=== PATIENT | female | born 1950 | race Caucasian/White ===

== ENCOUNTER 2021-08-18 20:54 | Observation (INO) ==
[2021-08-18] MEDS ORDERED: SODIUM CHLORIDE 0.9% 500 ML IV SCH (21:00)
--- NOTE | 2021-08-18 21:09 | Emergency Department Note ---
Impression & Plan Seizure, Epileptic seizure ED Provider Note NAME: JAYCE RUIZ AGE: 71 SEX: F : 1950 ARRIVES VIA: Ambulance INFORMANT: Patient, EMS ED PROVIDER(S): Kirti Boyce DO CHIEF COMPLAINT: Seizure HPI: The patient is a 71-year-old female who presented to the emergency department by ambulance for an evaluation of seizure. The patient had a seizure at home. The history is limited secondary to the patient having altered mental status. According to the prehospital personnel and they arrived at the home the patient was combative and appeared to be postictal. It was reported that she had a seizure. The patient received 2 doses of Versed because she was postictal. There is no reported seizure witnessed by the EMS personnel. The patient does take Tegretol. There reportedly is a history of seizure. There is been no reported trauma. The patient has been compliant with her outpatient medications according to her history. There is been no reported fever. There is been no reported vomiting. The patient reportedly was at her normal mental status prior to this episode this evening. ROS: See above HPI for pertinent positives & negatives. A total of 10 systems reviewed and were otherwise negative. PAST MEDICAL HISTORY: See Below PAST SURGICAL HISTORY: See Below FAMILY HISTORY: See Below SOCIAL HISTORY: See Below HOME MEDICATIONS: See Below ALLERGIES: See Below VITALS: See Below PHYSICAL EXAMINATION: GENERAL: The patient is awake. She is somewhat listless. She follows commands slowly. EYES: The conjunctivae are clear. The pupils are dilated and reactive bilaterally. EARS, NOSE, MOUTH AND THROAT: The nose is without any evidence of any deformity. NECK: The neck is nontender and supple. RESPIRATORY: Normal respiratory effort is noted there is no evidence of wheezing rhonchi or rales CARDIOVASCULAR: Regular rate and rhythm noted there no murmurs rubs or gallops normal S1 normal S2. GASTROINTESTINAL: The abdomen is soft. Abdomen is nontender. MUSCULOSKELETAL/EXTREMITIES: There is no evidence of gross deformity full range of motion is noted in the hips and shoulders. SKIN: There is no obvious evidence of any rash. There are no petechiae, pallor or cyanosis noted. NEUROLOGIC: Patient is awake. She appears to be oriented to person but not place or time. Strength was symmetric. 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 MEDICAL DECISION MAKING: The patient is a 71-year-old female who presented to the emergency department for an evaluation after having a seizure. The patient has a history of seizure disorder and normally takes Tegretol. She states that she has been compliant with her outpatient medications. On route to the emergency department the patient was somewhat combative and complaining of headache. She was treated with Versed by the prehospital personnel. Upon arrival she still appeared to be postictal. I discussed the patient's laboratory and radiographic studies with her. On subsequent reevaluation she was awake alert and oriented x3. She was neurologically intact. According to her significant other she was at her neurologic baseline. While she was in the emergency department she was treated with IV Keppra after she had another episode of seizure. She does have mild hyponatremia. I do not feel that this is contributory to the seizure. I discussed her condition with the on-call [facility] hospitalist. They have agreed to evaluate the patient in the emergency department for further man agement and disposition. Triage Nursing notes reviewed. Prior medical records reviewed Vital Signs: reviewed and remarkable for elevated blood pressure. Differential diagnosis: Epilepsy, infection, hypoglycemia, electrolyte abnormalities, cardiac sources, intracerebral event, trauma, toxicologic, neurologic, syncope, as well as other pathologies. ER treatment provided: See below Diagnostics interpreted by me: ECG: EKG was obtained in the emergency department. My interpretation is normal sinus rhythm at [address] segment depressions were noted in the inferior and low lateral leads. There is no ectopy. No previous tracing was available. Cardiac Monitoring: An order was placed for continuous cardiac monitoring. The monitor shows a rate of 72 bpm with sinus rhythm. Laboratory studies: As stated above and show below. Imaging studies: See below Consultation(s): I discussed this case with Dr. Caicedo Past Med/Surg History Social History Smoking Status: Unknown if ever smoked Preferred Language: Jamaican Feels Safe at Home: Yes Allergies Allergies Allergy/AdvReac Type Severity Reaction Status Date / Time No Known Allergies Allergy Verified 08/18/21 21:32 Home Meds Home Medications Medication Instructions Recorded Confirmed carbamazepine 400 mg 400 mg PO BID 08/18/21 08/18/21 tablet,extended release,12 hr (Tegretol XR) furosemide 20 mg tablet 20 mg PO DAILY 08/18/21 08/18/21 meloxicam 7.5 mg tablet 7.5 mg PO DAILY 08/18/21 08/18/21 metoprolol succinate 25 mg 25 mg PO DAILY 08/18/21 08/18/21 tablet,extended release 24 hr multivitamin 1 tab PO DAILY 08/18/21 08/18/21 omeprazole 20 mg capsule,delayed 20 mg PO DAILY 08/18/21 08/18/21 release paroxetine HCl 20 mg tablet 20 mg PO DAILY 08/18/21 08/18/21 paroxetine HCl 40 mg tablet 40 mg PO DAILY 08/18/21 08/18/21 simvastatin 20 mg tablet 20 mg PO DAILY 08/18/21 08/18/21 vit C 250 mg-vit E 90 mg-zinc 40 1 tab PO BID 08/18/21 08/18/21 mg-copper 1 [id number] capsule (PreserVision AREDS-2) Results & Data (ED) Vital Signs Vital Signs - 24 hr 08/18/21 21:06 08/18/21 21:07 08/18/21 21:10 Temperature 36.9 C Temperature Source Temporal Artery Scan Pulse Rate 89 80 84 Pulse Rate [Right Finger] Pulse Rate from SpO2 Sensor 89 86 Pulse Rhythm Respiratory Rate 22 21 20 Respiratory Effort / Characteristics Non-Labored Spontaneous Respiratory Depth Normal Blood Pressure 163/86 H Blood Pressure [Right Arm] Blood Pressure Mean 111 Blood Pressure Mean [Right Arm] Pulse Oximetry 94 99 95 Oxygen Delivery Method Room Air Sepsis Recent Fever Within 48 Hours No Sepsis New/Unexplained Change in Mental Status N/A Sepsis Action Taken by Nursing No Action Required 08/18/21 21:28 08/18/21 21:30 08/18/21 21:32 Temperature Temperature Source Pulse Rate 82 81 Pulse Rate [Right Finger] 85 Pulse Rate from SpO2 Sensor 81 80 Pulse Rhythm Respiratory Rate 30 H 20 22 Respiratory Effort / Characteristics Non-Labored Spontaneous Respiratory Depth Normal Blood Pressure 156/73 H Blood Pressure [Right Arm] 156/73 H Blood Pressure Mean 100 Blood Pressure Mean [Right Arm] 100 Pulse Oximetry 97 96 96 Oxygen Delivery Method Room Air Sepsis Recent Fever Within 48 Hours Sepsis New/Unexplained Change in Mental Status Sepsis Action Taken by Nursing 08/18/21 21:40 08/18/21 21:45 08/18/21 21:50 Temperature Temperature Source Pulse Rate 76 76 72 Pulse Rate [Right Finger] Pulse Rate from SpO2 Sensor 76 77 73 Pulse Rhythm Respiratory Rate 21 22 18 Respiratory Effort / Characteristics Respiratory Depth Blood Pressure 155/74 H 152/72 H Blood Pressure [Right Arm] Blood Pressure Mean 101 98 Blood Pressure Mean [Right Arm] Pulse Oximetry 97 97 97 Oxygen Delivery Method Sepsis Recent Fever Within 48 Hours Sepsis New/Unexplained Change in Mental Status Sepsis Action Taken by Nursing 08/18/21 21:55 08/18/21 21:59 08/18/21 22:00 Temperature Temperature Source Pulse Rate 75 74 Pulse Rate [Right Finger] 70 Pulse Rate from SpO2 Sensor 74 Pulse Rhythm Regular Respiratory Rate 16 27 H Respiratory Effort / Characteristics Respiratory Depth Blood Pressure 143/68 H Blood Pressure [Right Arm] 152/72 H Blood Pressure Mean 93 Blood Pressure Mean [Right Arm] 98 Pulse Oximetry 97 95 94 Oxygen Delivery Method Room Air Room Air Sepsis Recent Fever Within 48 Hours Sepsis New/Unexplained Change in Mental Status Sepsis Action Taken by Nursing 08/18/21 22:02 08/18/21 22:10 08/18/21 22:15 Temperature Temperature Source Pulse Rate 73 70 Pulse Rate [Right Finger] 75 Pulse Rate from SpO2 Sensor 71 71 Pulse Rhythm Respiratory Rate 16 21 22 Respiratory Effort / Characteristics Respiratory Depth Blood Pressure 141/80 H Blood Pressure [Right Arm] 143/68 H Blood Pressure Mean 100 Blood Pressure Mean [Right Arm] 93 Pulse Oximetry 95 97 96 Oxygen Delivery Method Room Air Sepsis Recent Fever Within 48 Hours Sepsis New/Unexplained Change in Mental Status Sepsis Action Taken by Nursing 08/18/21 22:20 08/18/21 22:58 08/18/21 23:00 Temperature Temperature Source Pulse Rate 72 69 67 Pulse Rate [Right Finger] Pulse Rate from SpO2 Sensor 73 70 68 Pulse Rhythm Respiratory Rate 12 20 17 Respiratory Effort / Characteristics Respiratory Depth Blood Pressure 130/79 Blood Pressure [Right Arm] Blood Pressure Mean 96 Blood Pressure Mean [Right Arm] Pulse Oximetry 98 97 96 Oxygen Delivery Method Sepsis Recent Fever Within 48 Hours Sepsis New/Unexplained Change in Mental Status Sepsis Action Taken by Nursing 08/18/21 23:10 08/18/21 23:20 08/18/21 23:30 Temperature Temperature Source Pulse Rate 71 66 65 Pulse Rate [Right Finger] Pulse Rate from SpO2 Sensor 71 66 65 Pulse Rhythm Respiratory Rate 19 22 26 H Respiratory Effort / Characteristics Respiratory Depth Blood Pressure 115/80 Blood Pressure [Right Arm] Blood Pressure Mean 91 Blood Pressure Mean [Right Arm] Pulse Oximetry 96 96 98 Oxygen Delivery Method Sepsis Recent Fever Within 48 Hours Sepsis New/Unexplained Change in Mental Status Sepsis Action Taken by Nursing 08/18/21 23:40 08/18/21 23:51 08/19/21 00:00 Temperature Temperature Source Pulse Rate 68 71 Pulse Rate [Right Finger] Pulse Rate from SpO2 Sensor 68 74 71 Pulse Rhythm Respiratory Rate 18 21 Respiratory Effort / Characteristics Non-Labored Respiratory Depth Normal Blood Pressure Blood Pressure [Right Arm] Blood Pressure Mean Blood Pressure Mean [Right Arm] Pulse Oximetry 97 98 96 Oxygen Delivery Method Sepsis Recent Fever Within 48 Hours Sepsis New/Unexplained Change in Mental Status Sepsis Action Taken by Nursing 08/19/21 00:10 08/19/21 00:20 08/19/21 00:26 Temperature Temperature Source Pulse Rate 66 70 73 Pulse Rate [Right Finger] Pulse Rate from SpO2 Sensor 65 70 74 Pulse Rhythm Respiratory Rate 23 23 21 Respiratory Effort / Characteristics Respiratory Depth Blood Pressure 134/72 Blood Pressure [Right Arm] Blood Pressure Mean 92 Blood Pressure Mean [Right Arm] Pulse Oximetry 91 93 96 Oxygen Delivery Method Sepsis Recent Fever Within 48 Hours Sepsis New/Unexplained Change in Mental Status Sepsis Action Taken by Nursing 08/19/21 00:30 08/19/21 00:40 08/19/21 00:50 Temperature Temperature Source Pulse Rate 70 74 69 Pulse Rate [Right Finger] Pulse Rate from SpO2 Sensor 70 74 69 Pulse Rhythm Respiratory Rate 17 25 H 24 Respiratory Effort / Characteristics Respiratory Depth Blood Pressure 134/71 Blood Pressure [Right Arm] Blood Pressure Mean 92 Blood Pressure Mean [Right Arm] Pulse Oximetry 97 93 95 Oxygen Delivery Method Sepsis Recent Fever Within 48 Hours Sepsis New/Unexplained Change in Mental Status Sepsis Action Taken by Nursing 08/19/21 01:00 Temperature Temperature Source Pulse Rate 72 Pulse Rate [Right Finger] Pulse Rate from SpO2 Sensor 72 Pulse Rhythm Respiratory Rate 24 Respiratory Effort / Characteristics Respiratory Depth Blood Pressure 147/70 H Blood Pressure [Right Arm] Blood Pressure Mean 95 Blood Pressure Mean [Right Arm] Pulse Oximetry 95 Oxygen Delivery Method Sepsis Recent Fever Within 48 Hours Sepsis New/Unexplained Change in Mental Status Sepsis Action Taken by [facility] Medications Current Medication List: was personally reviewed by me Laboratory Data Attestation: I reviewed the patient's lab results. Result diagrams: 08/18/21 21:30 08/18/21 21:30 Lab Results 08/18/21 08/18/21 08/18/21 Range/Units 21:05 21:18 21:18 WBC (4.8-10.8) K/uL RBC (4.2-5.4) M/uL Hgb (12.0-16.0) g/dL Hct (37-47) % MCV (80-100) fL MCH (25-34) pg MCHC (32-36) g/dL RDW Std Deviation (36.4-46.3) fL RDW Coeff of Brunilda (11.5-14.5) % Plt Count (130-400) K/uL MPV (7.4-10.4) fL Immature Gran % (Auto) % Neut % (Auto) % Lymph % (Auto) % [place] % (Auto) % Eos % (Auto) % Baso % (Auto) % Neut # (Auto) (1.4-6.5) K/uL Lymph # (Auto) (1.2-3.4) K/uL [place] # (Auto) (0.11-0.59) K/uL Eos # (Auto) (0-0.5) K/uL Baso # (Auto) (0-0.2) K/uL Immature Gran # (Auto) (0.00-0.02) K/uL PT (9.0-12.0) Seconds INR (0.9-1.1) APTT (21.0-31.0) Seconds PTT Ratio Sodium (136-145) mmol/L Potassium (3.5-5.1) mmol/L Chloride (98-107) mmol/L Carbon Dioxide (21-32) mmol/L Anion Gap (3-11) BUN (6-23) mg/dl Creatinine (0.6-1.2) mg/dl Est Cr Clr Drug Dosing ml/min Est GFR ( Amer) ml/min Est GFR (Non-Af Amer) ml/min BUN/Creatinine Ratio (10-20) Glucose (70-99(Fasting)) mg/dl POC Glucose 111 H (70-99) mg/dl Osmolality 270 L (280-300) mOsm/kg Calcium (8.5-10.1) mg/dl Magnesium (1.7-2.4) mg/dl Total Bilirubin (0.2-1.0) mg/dl AST (13-39) U/L ALT (7-52) U/L Alkaline Phosphatase (34-104) U/L Total Creatine Kinase (26-192) U/L Troponin I High Sens (0-14) pg/ml Total Protein (6.0-8.3) gm/dl Albumin (3.4-5.0) gm/dl Globulin (2.5-4.0) gm/dl Albumin/Globulin Ratio (0.9-2) TSH (0.300-4.500) uIu/ml Urine Color Urine Appearance (Clear) Urine pH (4.5-7.5) Ur Specific [place] (1.000-1.030) Urine Protein (Negative) Urine Glucose (UA) (Negative) Urine Ketones (Negative) Urine Blood (Negative) Urine Nitrite (Negative) Urine Bilirubin (Negative) Urine Urobilinogen (Negative) Ur Leukocyte Esterase (Negative) Urine Osmolality (500-800) mOsm/kg Ur Random Sodium mmol/L Carbamazepine 9.8 (4-12) mcg/ml SARS-CoV-2, RNA, NAAT (NEGATIVE) 08/18/21 08/18/21 08/18/21 Range/Units 21:30 21:30 21:30 WBC 6.97 (4.8-10.8) K/uL RBC 4.14 L (4.2-5.4) M/uL Hgb 12.1 (12.0-16.0) g/dL Hct 34.9 L (37-47) % MCV 84.3 (80-100) fL MCH 29.2 (25-34) pg MCHC 34.7 (32-36) g/dL RDW Std Deviation 40.8 (36.4-46.3) fL RDW Coeff of Brunilda 13.3 (11.5-14.5) % Plt Count 258 (130-400) K/uL MPV 8.7 (7.4-10.4) fL Immature Gran % (Auto) 0.1 % Neut % (Auto) 79.5 % Lymph % (Auto) 9.8 % [place] % (Auto) 9.9 % Eos % (Auto) 0.6 % Baso % (Auto) 0.1 % Neut # (Auto) 5.54 (1.4-6.5) K/uL Lymph # (Auto) 0.68 L (1.2-3.4) K/uL [place] # (Auto) 0.69 H (0.11-0.59) K/uL Eos # (Auto) 0.04 (0-0.5) K/uL Baso # (Auto) 0.01 (0-0.2) K/uL Immature Gran # (Auto) 0.01 (0.00-0.02) K/uL PT 11.0 (9.0-12.0) Seconds INR 1.0 (0.9-1.1) APTT 24.8 (21.0-31.0) Seconds PTT Ratio 0.9 Sodium 128 L (136-145) mmol/L Potassium 3.8 (3.5-5.1) mmol/L Chloride 97 L (98-107) mmol/L Carbon Dioxide 23 (21-32) mmol/L Anion Gap 8 (3-11) BUN 8 (6-23) mg/dl Creatinine 0.59 L (0.6-1.2) mg/dl Est Cr Clr Drug Dosing 93.8 ml/min Est GFR ( Amer) 107.6 ml/min Est GFR (Non-Af Amer) 92.9 ml/min BUN/Creatinine Ratio 13.6 (10-20) Glucose 106 H (70-99(Fasting)) mg/dl POC Glucose (70-99) mg/dl Osmolality (280-300) mOsm/kg Calcium 8.4 L (8.5-10.1) mg/dl Magnesium 2.1 (1.7-2.4) mg/dl Total Bilirubin 0.3 (0.2-1.0) mg/dl AST 27 (13-39) U/L ALT 25 (7-52) U/L Alkaline Phosphatase 57 (34-104) U/L Total Creatine Kinase 50 (26-192) U/L Troponin I High Sens 19.0 H (0-14) pg/ml Total Protein 6.8 (6.0-8.3) gm/dl Albumin 4.0 (3.4-5.0) gm/dl Globulin 2.8 (2.5-4.0) gm/dl Albumin/Globulin Ratio 1.4 (0.9-2) TSH (0.300-4.500) uIu/ml Urine Color Urine Appearance (Clear) Urine pH (4.5-7.5) Ur Specific [place] (1.000-1.030) Urine Protein (Negative) Urine Glucose (UA) (Negative) Urine Ketones (Negative) Urine Blood (Negative) Urine Nitrite (Negative) Urine Bilirubin (Negative) Urine Urobilinogen (Negative) Ur Leukocyte Esterase (Negative) Urine Osmolality (500-800) mOsm/kg Ur Random Sodium mmol/L Carbamazepine (4-12) mcg/ml SARS-CoV-2, RNA, NAAT (NEGATIVE) 08/18/21 08/18/21 08/18/21 Range/Units 21:30 21:32 23:40 WBC (4.8-10.8) K/uL RBC (4.2-5.4) M/uL Hgb (12.0-16.0) g/dL Hct (37-47) % MCV (80-100) fL MCH (25-34) pg MCHC (32-36) g/dL RDW Std Deviation (36.4-46.3) fL RDW Coeff of Brunilda (11.5-14.5) % Plt Count (130-400) K/uL MPV (7.4-10.4) fL Immature Gran % (Auto) % Neut % (Auto) % Lymph % (Auto) % [place] % (Auto) % Eos % (Auto) % Baso % (Auto) % Neut # (Auto) (1.4-6.5) K/uL Lymph # (Auto) (1.2-3.4) K/uL [place] # (Auto) (0.11-0.59) K/uL Eos # (Auto) (0-0.5) K/uL Baso # (Auto) (0-0.2) K/uL Immature Gran # (Auto) (0.00-0.02) K/uL PT (9.0-12.0) Seconds INR (0.9-1.1) APTT (21.0-31.0) Seconds PTT Ratio Sodium (136-145) mmol/L Potassium (3.5-5.1) mmol/L Chloride (98-107) mmol/L Carbon Dioxide (21-32) mmol/L Anion Gap (3-11) BUN (6-23) mg/dl Creatinine (0.6-1.2) mg/dl Est Cr Clr Drug Dosing ml/min Est GFR ( Amer) ml/min Est GFR (Non-Af Amer) ml/min BUN/Creatinine Ratio (10-20) Glucose (70-99(Fasting)) mg/dl POC Glucose (70-99) mg/dl Osmolality (280-300) mOsm/kg Calcium (8.5-10.1) mg/dl Magnesium (1.7-2.4) mg/dl Total Bilirubin (0.2-1.0) mg/dl AST (13-39) U/L ALT (7-52) U/L Alkaline Phosphatase (34-104) U/L Total Creatine Kinase (26-192) U/L Troponin I High Sens (0-14) pg/ml Total Protein (6.0-8.3) gm/dl Albumin (3.4-5.0) gm/dl Globulin (2.5-4.0) gm/dl Albumin/Globulin Ratio (0.9-2) TSH 1.884 (0.300-4.500) uIu/ml Urine Color Yellow Urine Appearance Clear (Clear) Urine pH 6.5 (4.5-7.5) Ur Specific [place] 1.012 (1.000-1.030) Urine Protein Negative (Negative) Urine Glucose (UA) Negative (Negative) Urine Ketones Negative (Negative) Urine Blood Negative (Negative) Urine Nitrite Negative (Negative) Urine Bilirubin Negative (Negative) Urine Urobilinogen Negative (Negative) Ur Leukocyte Esterase Negative (Negative) Urine Osmolality (500-800) mOsm/kg Ur Random Sodium mmol/L Carbamazepine (4-12) mcg/ml SARS-CoV-2, RNA, NAAT NEGATIVE (NEGATIVE) 08/18/21 08/18/21 08/19/21 Range/Units 23:40 23:40 00:30 WBC (4.8-10.8) K/uL RBC (4.2-5.4) M/uL Hgb (12.0-16.0) g/dL Hct (37-47) % MCV (80-100) fL MCH (25-34) pg MCHC (32-36) g/dL RDW Std Deviation (36.4-46.3) fL RDW Coeff of Brunilda (11.5-14.5) % Plt Count (130-400) K/uL MPV (7.4-10.4) fL Immature Gran % (Auto) % Neut % (Auto) % Lymph % (Auto) % [place] % (Auto) % Eos % (Auto) % Baso % (Auto) % Neut # (Auto) (1.4-6.5) K/uL Lymph # (Auto) (1.2-3.4) K/uL [place] # (Auto) (0.11-0.59) K/uL Eos # (Auto) (0-0.5) K/uL Baso # (Auto) (0-0.2) K/uL Immature Gran # (Auto) (0.00-0.02) K/uL PT (9.0-12.0) Seconds INR (0.9-1.1) APTT (21.0-31.0) Seconds PTT Ratio Sodium (136-145) mmol/L Potassium (3.5-5.1) mmol/L Chloride (98-107) mmol/L Carbon Dioxide (21-32) mmol/L Anion Gap (3-11) BUN (6-23) mg/dl Creatinine (0.6-1.2) mg/dl Est Cr Clr Drug Dosing ml/min Est GFR ( Amer) ml/min Est GFR (Non-Af Amer) ml/min BUN/Creatinine Ratio (10-20) Glucose (70-99(Fasting)) mg/dl POC Glucose (70-99) mg/dl Osmolality (280-300) mOsm/kg Calcium (8.5-10.1) mg/dl Magnesium (1.7-2.4) mg/dl Total Bilirubin (0.2-1.0) mg/dl AST (13-39) U/L ALT (7-52) U/L Alkaline Phosphatase (34-104) U/L Total Creatine Kinase (26-192) U/L Troponin I High Sens (0-14) pg/ml Total Protein (6.0-8.3) gm/dl Albumin (3.4-5.0) gm/dl Globulin (2.5-4.0) gm/dl Albumin/Globulin Ratio (0.9-2) TSH (0.300-4.500) uIu/ml Urine Color Urine Appearance (Clear) Urine pH (4.5-7.5) Ur Specific [place] (1.000-1.030) Urine Protein (Negative) Urine Glucose (UA) (Negative) Urine Ketones (Negative) Urine Blood (Negative) Urine Nitrite (Negative) Urine Bilirubin (Negative) Urine Urobilinogen (Negative) Ur Leukocyte Esterase (Negative) Urine Osmolality 370 L (500-800) mOsm/kg Ur Random Sodium 75 mmol/L Carbamazepine (4-12) mcg/ml SARS-CoV-2, RNA, NAAT NEGATIVE (NEGATIVE) Administered Medications Discontinued Medications Sodium Chloride (Nss) 500 mls @ 999 mls/hr IV .Q31M MICHAEL Stop: 08/18/21 21:30 Last Infusion: 08/18/21 21:42 Dose: 0 mls/hr Documented by: [id number] Admin: 08/18/21 21:14 Dose: 999 mls/hr Documented by: [id number] Levetiracetam 2,000 mg/ Sodium (Chloride) 270 mls @ 999 mls/hr IV NOW STA Stop: 08/19/21 00:41 Last Infusion: 08/19/21 01:20 Dose: 0 mls/hr Documented by: [id number] Admin: 08/19/21 01:01 Dose: 999 mls/hr Documented by: [id number] Imaging Data Radiologist's Impression: Patient: JAYCE RUIZ (Female) : 52 Status: ER Date: 08/18/21 21:31 Room #: History: seizure, fall Slices: 58 Priors: Tech:Yun Sharma @ [phone] Exams: CT HEAD Contrast: Accession Numbers: [id number] Referring Physician: KIRTI BOYCE Preliminary Findings Only See Final Report For Complete Findings CT HEAD: No evidence of acute intercranial pathology. No comparisons. Radiologist: Nanci Gao MD Study ready at 22:10 and initial results transmitted at 22:13 Patient: JAYCE RUIZ (Female) : 52 Status: ER Date: 08/18/21 21:26 Room #: History: seizure, fall Slices: 743 Priors: Tech: Yun Mendez @ [phone] Exams: CT C SPINE Contrast: Accession Numbers: [id number] Referring Physician: KIRTI BOYCE Preliminary Findings Only See Final Report For Complete Findings CT C SPINE: No evidence of acute cervical spine pathology. Advanced disc degeneration at C5-6 with moderate disc degeneration at C4-5 and C6-7. Spondylolisthesis at C3- 4, C4-5 and C7-T1. Mild calcified atherosclerotic disease of the carotid bifurcations. Bilateral C7 vestigial ribs. Bilateral thyroid nodules. No com parisons. Radiologist: Nanci Gao MD Study ready at 22:10 and initial results transmitted at 22:12 Discharge Plan Visit Data Chief Complaint: Seizure ED Provider: Kirti Boyce Discharge Problem: Seizure, Epileptic seizure Patient Disposition: Being Evaluated by Hospitalist Forms Stand Alone Forms: My [facility] Prescriptions Prescriptions: No Action multivitamin Tablet 1 tab PO DAILY RF: 0 carbamazepine [Tegretol XR] 400 mg tablet extended release 12 hr 400 mg PO BID RF: 0 meloxicam 7.5 mg tablet 7.5 mg PO DAILY RF: 0 paroxetine HCl 20 mg tablet 20 mg PO DAILY RF: 0 simvastatin 20 mg tablet 20 mg PO DAILY RF: 0 omeprazole 20 mg capsule,delayed release(DR/EC) 20 mg PO DAILY RF: 0 furosemide 20 mg tablet 20 mg PO DAILY RF: 0 metoprolol succinate 25 mg tablet extended release 24 hr 25 mg PO DAILY RF: 0 paroxetine HCl 40 mg tablet 40 mg PO DAILY RF: 0 PreserVision AREDS-2 250-90-40-1 mg Capsule 1 tab PO BID RF: 0 Referrals Referrals: PCP,NO [Physician] -
[2021-08-18 21:46] LABS: Basophils # (auto) 0.01 K/uL (0-0.2); Basophils % (auto) 0.1 %; Eosinophils # (auto) 0.04 K/uL (0-0.5); Eosinophils % (auto) 0.6 %; Hematocrit (blood only) 34.9 % (37-47); Hemoglobin 12.1 g/dL (12.0-16.0); Immature Granulocytes # (auto) 0.01 K/uL (0.00-0.02); Immature Granulocytes % (auto) 0.1 %; Lymphocytes # (auto) 0.68 K/uL (1.2-3.4); Lymphocytes % (auto) 9.8 %; Mean Corpuscular Hemoglobin 29.2 pg (25-34); Mean Corpuscular Hgb Conc 34.7 g/dL (32-36); Mean Corpuscular Volume 84.3 fL (80-100); Mean Platelet Volume 8.7 fL (7.4-10.4); Monocytes # (auto) 0.69 K/uL (0.11-0.59); Monocytes % (auto) 9.9 %; Neutrophils # (auto) 5.54 K/uL (1.4-6.5); Neutrophils % (auto) 79.5 %; Platelet Count 258 K/uL (130-400); RDW Coefficient of Variation 13.3 % (11.5-14.5); RDW Standard Deviation 40.8 fL (36.4-46.3); Red Blood Count 4.14 M/uL (4.2-5.4); White Blood Count 6.97 K/uL (4.8-10.8)
[2021-08-18 22:00] LABS: BUN Creatinine Ratio 13.6 (10-20); Calcium 8.4 mg/dl (8.5-10.1); Creatinine Clr Calc Pharmacy 93.8 ml/min; Est GFR (African American) 107.6 ml/min; Est GFR (Non-African American) 92.9 ml/min; Potassium 3.8 mmol/L (3.5-5.1)
[2021-08-18 22:01] LABS: Albumin Globulin Ratio 1.4 (0.9-2); Bilirubin,Total 0.3 mg/dl (0.2-1.0); Globulin 2.8 gm/dl (2.5-4.0); Magnesium 2.1 mg/dl (1.7-2.4); Partial Thromboplastin Ratio 0.9; Partial Thromboplastin Time 24.8 Seconds (21.0-31.0); Total Protein 6.8 gm/dl (6.0-8.3)
[2021-08-19 00:08] LABS: Appearance Urine Clear (Clear); Bilirubin Urine Negative (Negative); Blood Urine Negative (Negative); Color Urine Yellow; Glucose Urine UA Negative (Negative); Ketones Urine Negative (Negative); Leukocyte Esterase Urine Negative (Negative); Nitrite Urine Negative (Negative); Protein Urine Negative (Negative); Specific Gravity Urine 1.012 (1.000-1.030); Urobilinogen Urine Negative (Negative); pH Urine 6.5 (4.5-7.5)
--- NOTE | 2021-08-19 01:09 | History & Physical Report ---
Date of Service August 19, 2021 Assessment & Plan (1) Seizure: Plan: Breakthrough seizures Unclear precipitant Rule out brain tumor hypertension, slightly elevated Troponin elevation secondary to above chronic hyponatremia mood disorder past tobacco abuse. OBS Medical telemetry Continue home carbamazepine Seizure precautions, Ativan as needed Brain MRI, Neurology consult Re: Breakthrough seizures Defer decision regarding addition of Keppra to patient's regimen to specialist. Facilitate home BP meds Follow troponin, TTE if with progression DVT prophylaxis. SCDs Re: Head trauma Full code Attempted to contact patient's family to obtain additional history and give update on plan of care. No answer. Mr. Celestine Doshi (), contact #[phone] Ms. Joan Lux (niece), contact #[phone] Text document was generated using Acceptd voice recognition software. It may contain grammatical or spelling errors. Kindly contact undersigned for clarification of any documentation item in question. History of Present Illness Chief Complaint: Recurrent seizures as per records Headache as per patient Primary Care Provider: Celestine Chen PA-C History obtained from patient and records. History from patient secondary to mild confusion. Medical history significant for hypertension, seizure disorder, chronic hyponatremia, RLS, mood disorder, GERD status post surgery, past tobacco abuse. Patient reported to have 2 seizures at home, more frequent than usual attack as per family as per EMS. Possible fall leading to head trauma after seizure attack as per report. Patient noted to be combative upon EMS arrival. Versed administered. Patient compliant with home medications. Unable to answer questions regarding nature of breakthrough seizure, last seizure episode prior to last night. Patient complaining of achy headache symptoms. IV Keppra administered at the ER. 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 Allergies Allergy/AdvReac Type Severity Reaction Status Date / Time No Known Allergies Allergy Verified 08/18/21 21:32 Home Medications Medication Instructions Recorded Confirmed Type carbamazepine 400 mg 400 mg PO BID 08/18/21 08/18/21 History tablet,extended release,12 hr (Tegretol XR) furosemide 20 mg tablet 20 mg PO DAILY 08/18/21 08/18/21 History meloxicam 7.5 mg tablet 7.5 mg PO DAILY 08/18/21 08/18/21 History metoprolol succinate 25 mg 25 mg PO DAILY 08/18/21 08/18/21 History tablet,extended release 24 hr multivitamin 1 tab PO DAILY 08/18/21 08/18/21 History omeprazole 20 mg capsule,delayed 20 mg PO DAILY 08/18/21 08/18/21 History release paroxetine HCl 20 mg tablet 20 mg PO DAILY 08/18/21 08/18/21 History paroxetine HCl 40 mg tablet 40 mg PO DAILY 08/18/21 08/18/21 History simvastatin 20 mg tablet 20 mg PO DAILY 08/18/21 08/18/21 History vit C 250 mg-vit E 90 mg-zinc 40 1 tab PO BID 08/18/21 08/18/21 History mg-copper 1 [id number]-buvkuq capsule (PreserVision AREDS-2) Past Med/Surg History Social History Smoking Status: Former smoker Cigarettes Per Day: < 1pack/day; quit over 40years ago; Second Hand Exposure: No; Do You Dip or Chew Tobacco: No; Tobacco Cessation Education Requested by Patient: No Hx Alcohol Use: No Hx Substance Use: No Preferred Language: Serbian Communication Ability: Effective Senior Staff Consultant Required: No Beliefs That Will Affect Care: None Current Living Situation: Spouse and Family Feels Safe at Home: Yes Safety Concerns: Feels Safe At This Time Assistive Devices: None Assistive Devices Comment: Only upper dentures present at this time Review of Systems Review of Systems: As per HPI, all other systems reviewed and negative Physical Exam Physical Exam: GENERAL: uncomfortable, no respiratory distress SKIN: Normal color, warm HEENT: [place] palpebral conjunctivae, no ptosis, dry buccal mucosa NECK : Supple, no tenderness CHEST : CTA, no tenderness HEART : RRR, no obvious murmurs ABDOMEN: Some distention, nontender EXTREMITIES : LE swelling, no LE tenderness, no other conspicuous deformities noted NEUROLOGIC : Oriented to month and year,, no facial asymmetry, no other gross focality Results & Data Results & Data ([facility]) Vital Signs (Past 12 Hours) Vital Signs Temp Pulse Pulse Resp BP BP Pulse Ox 08/19/21 01:00 72 24 147/70 H 95 06/27/22 00:50 69 24 95 08/19/21 00:40 74 25 H 93 08/19/21 00:30 70 17 134/71 97 08/19/21 00:26 73 21 134/72 96 08/19/21 00:20 70 23 93 08/19/21 00:10 66 23 91 08/19/21 00:00 71 21 96 08/18/21 23:51 98 08/18/21 23:40 68 18 97 08/18/21 23:30 65 26 H 115/80 98 08/18/21 23:20 66 22 96 08/18/21 23:10 71 19 96 08/18/21 23:00 67 17 130/79 96 08/18/21 22:58 69 20 97 08/18/21 22:20 72 12 98 08/18/21 22:15 70 22 141/80 H 96 08/18/21 22:10 73 21 97 08/18/21 22:02 75 16 143/68 H 95 08/18/21 22:00 74 27 H 143/68 H 94 08/18/21 21:59 75 95 08/18/21 21:55 70 16 152/72 H 97 08/18/21 21:50 72 18 97 08/18/21 21:45 76 22 152/72 H 97 08/18/21 21:40 76 21 155/74 H 97 08/18/21 21:32 85 22 156/73 H 96 08/18/21 21:30 81 20 156/73 H 96 08/18/21 21:28 82 30 H 97 08/18/21 21:10 84 20 95 08/18/21 21:07 36.9 C 80 21 163/86 H 99 08/18/21 21:06 89 22 94 Laboratory Results Laboratory Results WBC 6.97 K/uL (4.8-10.8) 08/18/21 21:30 RBC 4.14 M/uL (4.2-5.4) L 08/18/21 21:30 Hgb 12.1 g/dL (12.0-16.0) 08/18/21 21:30 Hct 34.9 % (37-47) L 08/18/21 21:30 MCV 84.3 fL (80-100) 08/18/21 21:30 MCH 29.2 pg (25-34) 08/18/21 21: MCHC 34.7 g/dL (32-36) 08/18/21: RDW Std Deviation 40.8 fL (36.4-46.3) 08/18/21: RDW Coeff of Brunilda 13.3 % (11.5-14.5) 08/18/21: Plt Count 258 K/uL (130-400) 08/18/21: MPV 8.7 fL (7.4-10.4) 08/18/21: Immature Gran % (Auto) 0.1 % 08/18/21: Neut % (Auto) 79.5 % 08/18/21: Lymph % (Auto) 9.8 % 08/18/21: [place] % (Auto) 9.9 % 08/18/21: Eos % (Auto) 0.6 % 08/18/21: Baso % (Auto) 0.1 % 08/18/21: Neut # (Auto) 5.54 K/uL (1.4-6.5) 08/18/21: Lymph # (Auto) 0.68 K/uL (1.2-3.4) L 08/18/21: [place] # (Auto) 0.69 K/uL (0.11-0.59) H 08/18/21: Eos # (Auto) 0.04 K/uL (0-0.5) 08/18/21: Baso # (Auto) 0.01 K/uL (0-0.2) 08/18/21: Immature Gran # (Auto) 0.01 K/uL (0.00-0.02) 08/18/21: PT 11.0 Seconds (9.0-12.0) 08/18/21: INR 1.0 (0.9-1.1) 08/18/21: APTT 24.8 Seconds (21.0-31.0) 08/18/21: PTT Ratio 0.9 08/18/21: Sodium 128 mmol/L (136-145) L 08/18/21: Potassium 3.8 mmol/L (3.5-5.1) 08/18/21 21:30 Chloride 97 mmol/L (98-107) L 08/18/21 21:30 Carbon Dioxide 23 mmol/L (21-32) 08/18/21 21:30 Anion Gap 8 (3-11) 08/18/21 21:30 BUN 8 mg/dl (6-23) 08/18/21 21:30 Creatinine 0.59 mg/dl (0.6-1.2) L 08/18/21 21:30 Est Cr Clr Drug Dosing 93.8 ml/min 08/18/21 21:30 Est GFR ( Amer) 107.6 ml/min 08/18/21 21:30 Est GFR (Non-Af Amer) 92.9 ml/min 08/18/21 21: BUN/Creatinine Ratio 13.6 (10-20) 08/18/21 21:30 Glucose 106 mg/dl (70-99(Fasting)) H 08/18/21 21:30 POC Glucose 111 mg/dl (70-99) H 08/18/21 21:05 Osmolality 270 mOsm/kg (280-300) L 08/18/21 21:18 Calcium 8.4 mg/dl (8.5-10.1) L 08/18/21: Magnesium 2.1 mg/dl (1.7-2.4) 08/18/21 21:30 Total Bilirubin 0.3 mg/dl (0.2-1.0) 08/18/21 21:30 AST 27 U/L (13-39) 08/18/21 21:30 ALT 25 U/L (7-52) 08/18/21 21:30 Alkaline Phosphatase 57 U/L (34-104) 08/18/21 21:30 Total Creatine Kinase 50 U/L (26-192) 08/18/21 21:30 Troponin I High Sens 19.0 pg/ml (0-14) H 08/18/21 21:30 Total Protein 6.8 gm/dl (6.0-8.3) 08/18/21 21:30 Albumin 4.0 gm/dl (3.4-5.0) 08/18/21: Globulin 2.8 gm/dl (2.5-4.0) 08/18/21 21:30 Albumin/Globulin Ratio 1.4 (0.9-2) 08/18/21 21:30 TSH 1.884 uIu/ml (0.300-4.500) 08/18/21 21:30 Urine Color Yellow 08/18/21 23:40 Urine Appearance Clear (Clear) 08/18/21 23:40 Urine pH 6.5 (4.5-7.5) 08/18/21 23:40 Ur Specific [place] 1.012 (1.000-1.030) 08/18/21 23:40 Urine Protein Negative (Negative) 08/18/21 23:40 Urine Glucose (UA) Negative (Negative) 08/18/21 23:40 Urine Ketones Negative (Negative) 08/18/21 23:40 Urine Blood Negative (Negative) 08/18/21 23:40 Urine Nitrite Negative (Negative) 08/18/21 23:40 Urine Bilirubin Negative (Negative) 08/18/21 23:40 Urine Urobilinogen Negative (Negative) 08/18/21 23:40 Ur Leukocyte Esterase Negative (Negative) 08/18/21 23:40 Urine Osmolality 370 mOsm/kg (500-800) L 08/18/21 23:40 Ur Random Sodium 75 mmol/L 08/18/21 23:40 Carbamazepine 9.8 mcg/ml (4-12) 08/18/21 21:18 SARS-CoV-2, RNA, NAAT NEGATIVE (NEGATIVE) 08/19/21 00:[address] head initial read: No evidence of acute intercranial pathology. No comparisons CT cervical spine initial read: No evidence of acute cervical spine pathology. Advanced disc degeneration at C5- 6with moderate disc degeneration at C4-5 and C6-7. Spondylolisthesis at C3-4, C4-5 and C7-T1. Mild calcified atherosclerotic disease of the carotid bifurcations. Bilateral C7 vestigial ribs. Bilateral thyroid nodules. No comparisons. Chest x-ray as per my interpretation no congestion EKG as per my interpretation : Rate 85, NSR, normal axis, T wave abnormalities inferior leads
[2021-08-19] MEDS ORDERED: ACETAMINOPHEN 325 MG TAB PO STA (01:30)
[2021-08-19] MEDS ORDERED: CALCIUM GLUCONATE 1,000 MG/60 ML BAG IV STA (02:17)
[2021-08-19 02:19] LABS: Troponin I High Sensitivity 18.5 pg/ml (0-14)
[2021-08-19] MEDS ORDERED: GADOBUTROL 10ML VIAL IV ONE (03:01)
[2021-08-19] MEDS ORDERED: ACETAMINOPHEN 325 MG TAB PO PRN (04:38)
[2021-08-19] MEDS ORDERED: PROMETHAZINE HCL 12.5 MG in SODIUM CHLORIDE 0.9% 50 ML IV PRN (04:38)
[2021-08-19] MEDS ORDERED: oxyCODONE HCL IR 5 MG TAB (IMMEDIATE RELEASE) PO PRN (04:38)
[2021-08-19] MEDS ORDERED: LORazepam 1 MG in SYRINGE 0.5 ML IV PRN (04:38)
[2021-08-19] MEDS ORDERED: ACETAMINOPHEN W/CODEINE #3 1 TAB PO PRN (05:35)
[2021-08-19] MEDS: METOPROLOL SUCC 25MG EXT REL TAB PO SCH (06:21)
[2021-08-19] MEDS: MELOXICAM 7.5 MG TAB PO SCH (06:26)
--- NOTE | 2021-08-19 07:07 | CT Scan Report ---
CT OF THE HEAD WITHOUT CONTRAST CLINICAL HISTORY: Seizure. COMPARISON STUDY: No previous studies for comparison. CT DOSE: 865.70 mGy.cm TECHNIQUE: Helical axial images of the head were obtained without IV contrast. Automated exposure con trol was utilized for the study. A dose lowering technique was utilized adhering to the principles o f ALARA. FINDINGS: No acute intracranial hemorrhage, midline shift or mass effect is present. White matter hyp odensity suggests small vessel disease. The ventricular system is unremarkable. The basal cisterns ar e patent. No extra-axial collections are present. There are no findings to suggest acute dural sinus thrombosis or acute territorial infarct. No significant calvarial abnormalities are present. Visualiz ed portions of the sinuses and mastoid air cells are clear. IMPRESSION: 1. No acute intracranial findings. 2. No acute calvarial fracture. ACT 112: Negative or not required by law. Electronically signed by: Marc Berrios M.D. 08/19/2021 7:06 AM
--- NOTE | 2021-08-19 07:11 | Magnetic Resonance Report ---
MRI OF THE BRAIN WITHOUT AND WITH IV CONTRAST SEIZURE PROTOCOL CLINICAL HISTORY: Seizure. COMPARISON STUDY: Head CT August 18, 2021. TECHNIQUE: Utilizing a 1.5 Natalia magnet and dedicated coil, multiplanar, multiecho imaging of the br ain was performed pre and postcontrast administration. IV administration of 7.5 mL of Gadavist contr ast was uneventful. Thin cut coronal T2 imaging was performed according to seizure protocol. FINDINGS: There are no foci of restricted diffusion to suggest acute infarct. No acute intracranial h emorrhage, midline shift or mass effect is present. Postcontrast images are moderately compromised by motion artifact but no intracranial mass or pathologic enhancement is identified. Flow-voids for the major intracranial vessels are present. Mild white matter T2 hyperintense foci favor small vessel di sease. Ventricular system is unremarkable. Basal cisterns are patent. There are no extra-axial collec tions. There is no mastoid fluid. No evidence for sinusitis. IMPRESSION: 1. No acute intracranial findings. 2. Postcontrast images moderately compromised by motion artifact but no intracranial mass or patholog ic enhancement identified. ACT 112: Negative or not required by law. Electronically signed by: Marc Berrios M.D. 08/19/2021 7:10 AM
--- NOTE | 2021-08-19 07:25 | CT Scan Report ---
CT cervical spine wo con CLINICAL HISTORY: 71 years-old Female with possible trauma. Acute neck injury status post fall COMPARISON: Head CT of same day, brain MRI 08/19/2021 TECHNIQUE: Multiple axial CT images of the cervical spine were obtained without contrast. A dose low ering technique was utilized adhering to the principles of ALARA. FINDINGS: Demineralized appearance the bones. Grade 1 anterolisthesis C3 on C4 and C7 on T1 is likely secondary to chronic facet arthrosis. There is moderate to severe multilevel facet arthropathy. Mult ilevel intervertebral disc space narrowing is moderate to severe at the C4-C5, C5-C6 and C6-C7 levels . No acute cervical spine fracture or subluxation. Mild superior endplate compression is noted involv ing the T1 and T2 vertebral bodies without acute fracture line, paravertebral edema or retropulsion. These are likely chronic. Right-sided C7 cervical rib. Multilevel neural foraminal stenosis. No pneumothorax. Heterogeneity of the thyroid. No prevertebral edema. Calcified plaque of the carotid bulbs. IMPRESSION: No acute cervical spine fracture or subluxation. ACT 112: Negative or not required by law. The above report was generated using voice recognition software. It may contain grammatical, syntax o r spelling errors. Electronically signed by: Isaías Carrillo M.D. 08/19/2021 7:23 AM
--- NOTE | 2021-08-19 07:39 | XRay Report ---
XR chest 1V portable CLINICAL HISTORY: weakness COMPARISON STUDY: No previous studies for comparison. FINDINGS: Lung volumes are normal. Lungs are clear. There is no pneumothorax or pleural effusion. Car diac size is normal. Mediastinal contours are normal. There is no evidence for pulmonary edema. Surgi livier clips project over the lower mediastinum. There are probable cholecystectomy clips. IMPRESSION: No acute cardiopulmonary findings. ACT 112: Negative or not required by law. Electronically signed by: Marc Berrios M.D. 08/19/2021 7:38 AM
[2021-08-19 08:03] LABS: iSTAT Arterial Blood Gas HCO3 19 meg/L (19-24); iSTAT Arterial Blood Gas pCO2 43 mmHg (35-46); iSTAT Arterial Blood Gas pH 7.25 (7.35-7.45); iSTAT Arterial Blood Gas pO2 169 mmHg (80-95); iSTAT Carbon Dioxide 20 mmol/L (24-31); iSTAT Hematocrit 35 % (37-47); iSTAT Hemoglobin 11.9 g/dl (12.0-16.0); iSTAT Potassium 4.7 mmol/L (3.3-5.0); iSTAT Sodium 123 mmol/L (135-144)
[2021-08-19 08:15] LABS: Basophils # (auto) 0.01 K/uL (0-0.2); Basophils % (auto) 0.1 %; Eosinophils # (auto) 0.04 K/uL (0-0.5); Eosinophils % (auto) 0.6 %; Hemoglobin 11.2 g/dL (12.0-16.0); Immature Granulocytes # (auto) 0.01 K/uL (0.00-0.02); Immature Granulocytes % (auto) 0.1 %; Lymphocytes # (auto) 1.48 K/uL (1.2-3.4); Lymphocytes % (auto) 22.1 %; Mean Corpuscular Hemoglobin 28.5 pg (25-34); Mean Corpuscular Hgb Conc 33.9 g/dL (32-36); Mean Platelet Volume 8.6 fL (7.4-10.4); Monocytes # (auto) 0.57 K/uL (0.11-0.59); Monocytes % (auto) 8.5 %; Neutrophils # (auto) 4.58 K/uL (1.4-6.5); Neutrophils % (auto) 68.6 %; Platelet Count 248 K/uL (130-400); RDW Coefficient of Variation 13.5 % (11.5-14.5); RDW Standard Deviation 41.4 fL (36.4-46.3); Red Blood Count 3.93 M/uL (4.2-5.4); White Blood Count 6.69 K/uL (4.8-10.8)
--- NOTE | 2021-08-19 08:29 | Electrocardiogram Report ---
Test Reason : Blood Pressure : / mmHG Vent. Rate : 087 BPM Atrial Rate : 087 BPM P-R Int : 198 ms QRS Dur : 094 ms QT Int : 384 ms P-R-T Axes : 074 -08 031 degrees QTc Int : 462 ms Normal sinus rhythm Diffuse Minor Nonspecific ST abnormality Abnormal ECG No previous ECGs available Confirmed by Robert Nieves ([id number]) on 08/19/2021 8:29:08 AM Referred By: REFERRED SELF Confirmed By:Robert Nieves
[2021-08-19 08:43] LABS: BUN Creatinine Ratio 10.2 (10-20); Calcium 8.4 mg/dl (8.5-10.1); Creatinine Clr Calc Pharmacy 82.4 ml/min; Est GFR (African American) 107.6 ml/min; Est GFR (Non-African American) 92.9 ml/min; Potassium 3.5 mmol/L (3.5-5.1)
[2021-08-19] MEDS ORDERED: MULTIVITAMIN TAB PO SCH (09:00)
[2021-08-19] MEDS ORDERED: METOPROLOL SUCC 25MG EXT REL TAB PO SCH (09:00)
[2021-08-19] MEDS ORDERED: NON-FORMULARY MEDICATION (Paroxetine Hcl 40 mg tablet) PO SCH (09:00)
[2021-08-19] MEDS: SIMVASTATIN 20 MG TAB PO SCH (09:08)
[2021-08-19] MEDS: CEROVITE ADV FORMULA TAB PO SCH (09:08)
[2021-08-19] MEDS: PANTOprazole 40 MG TAB PO SCH (09:09)
[2021-08-19] MEDS: PARoxetine HCL 20 MG TAB PO SCH (09:09)
--- NOTE | 2021-08-19 12:48 | Neurology Consultation ---
Date of Consultation August 19, 2021 Assessment & Plan (1) Seizure: A 71 year old woman with chronic cognitive issues / memory problems , depression, seizures, and non epileptic behavior events admitted with episodes of altered mentation or staring spells. Has had these in the past. Low suspicion for breakthrough seizure. Tegretol WNL. MRI brain wo evidence of acute stroke or mass. Neuropsych testing pending for 09/04/21. On examine noted to have functional tremor. Recommend to continue current dose of home Tegretol. Will defer on adding any additional AED. Recommend outpatient ambulatory EEG which I ordered and sent to scheduling. Patient agreeable. I will arrange follow up after Neuropsych and ambulatory EEG. Recommend PT/OT for any rehab needs. PLease call me with any additional questions or concerns. Lamont Mitchell DO Supervising Physician Co-Signing Physician Notes I have seen and discussed above patient with Lamont Mitchell DO History of Present Illness Reason for Consultation: Episodes of altered mentation Requesting Physician: Toni Stewart MD Attending Physician: Toni Stewart MD History of Present Illness Peace is a 71 year old female who presented to [facility] ED 08/19/21 for evaluation of seizure. EMS arrived at the home and she was combative and appears post ictal. She received 2 doses of Versed. She takes tegretol for seizure management and has been compliant. She was last seen in our office 06/03/21 and was on tegretol XR 400 mg BID. She had a 72 hour EEG which showed no epileptic focus or spikes. Allergies Allergy/AdvReac Type Severity Reaction Status Date / Time No Known Allergies Allergy Verified 08/18/21 21:32 Home Medications Medication Instructions Recorded Confirmed Type carbamazepine 400 mg 400 mg PO BID 08/18/21 08/18/21 History tablet,extended release,12 hr (Tegretol XR) furosemide 20 mg tablet 20 mg PO DAILY 08/18/21 08/18/21 History meloxicam 7.5 mg tablet 7.5 mg PO DAILY 08/18/21 08/18/21 History metoprolol succinate 25 mg 25 mg PO DAILY 08/18/21 08/18/21 History tablet,extended release 24 hr multivitamin 1 tab PO DAILY 08/18/21 08/18/21 History omeprazole 20 mg capsule,delayed 20 mg PO DAILY 08/18/21 08/18/21 History release paroxetine HCl 20 mg tablet 20 mg PO DAILY 08/18/21 08/18/21 History paroxetine HCl 40 mg tablet 40 mg PO DAILY 08/18/21 08/18/21 History simvastatin 20 mg tablet 20 mg PO DAILY 08/18/21 08/18/21 History vit C 250 mg-vit E 90 mg-zinc 40 1 tab PO BID 08/18/21 08/18/21 History mg-copper 1 [id number]-sywfmg-ayinbr capsule (PreserVision AREDS-2) Patient History Social History Smoking Status: Former smoker Cigarettes Per Day: < 1pack/day; quit over 40years ago; Second Hand Exposure: No; Do You Dip or Chew Tobacco: No; Tobacco Cessation Education Requested by Patient: No Hx Alcohol Use: No Hx Substance Use: No Preferred Language: Estonian Communication Ability: Effective Furniture Salesperson Required: No Beliefs That Will Affect Care: None Current Living Situation: Spouse and Family Feels Safe at Home: Yes Safety Concerns: Feels Safe At This Time Assistive Devices: None Assistive Devices Comment: Only upper dentures present at this time Physical Exam Physical Exam: Patient was seen and examined. Drowsy but following commands. Moving all 4 extremities. Eyes midline. Pupils symmetric. Tongue midline no abrasion. Tremulous with outstretched hands which is distractable. No myoclonic jerks. sensation intact. No clonus. Negative [place]. No bradykinesia. Gait deferred. Oriented to location and place. Appears depressed wtih flat affect. No edema legs. No rash. Head atraumatic normoccephalic. neck supple. Normal repiratory effort. Abdomen non distended. Results & Data ([facility]) Vital Signs (Past 12 Hours) Vital Signs Temp Pulse Pulse Resp BP BP BP 08/19/21 10:33 36.8 C 60 17 162/74 H 08/19/21 06:49 36.7 C 60 18 118/60 08/19/21 06:20 65 112/61 08/19/21 06:09 59 L 08/19/21 04:38 36.6 C 78 20 147/75 H 08/19/21 04:31 72 08/19/21 03:40 08/19/21 03:30 08/19/21 03:29 08/19/21 03:00 0 L 08/19/21 02:50 0 L 08/19/21 02:40 0 L 08/19/21 02:30 0 L 08/19/21 02:20 0 L 08/19/21 02:10 83 14 08/19/21 02:00 81 20 08/19/21 01:50 75 24 08/19/21 01:40 82 19 08/19/21 01:30 77 13 08/19/21 01:20 81 15 08/19/21 01:10 74 23 08/19/21 01:00 72 24 147/70 H 08/19/21 00:50 69 24 08/19/21 00:40 74 25 H Pulse Ox 08/19/21 10:33 94 08/19/21 06:49 95 08/19/21 06:20 08/19/21 06:09 08/19/21 04:38 99 08/19/21 04:31 08/19/21 03:40 95 08/19/21 03:30 100 08/19/21 03:29 98 08/19/21 03:00 08/19/21 02:50 08/19/21 02:40 08/19/21 02:30 08/19/21 02:20 08/19/21 02:10 96 08/19/21 02:00 96 08/19/21 01:50 95 08/19/21 01:40 95 08/19/21 01:30 98 08/19/21 01:20 97 08/19/21 01:10 94 08/19/21 01:00 95 08/19/21 00:50 95 08/19/21 00:40 93 Laboratory Results Abnormal lab results 08/18/21 08/18/21 08/18/21 Range/Units 21:05 21:18 21:30 RBC 4.14 L (4.2-5.4) M/uL Hgb (12.0-16.0) g/dL POC Hgb (12.0-16.0) g/dl Hct 34.9 L (37-47) % POC Hct (37-47) % Lymph # (Auto) 0.68 L (1.2-3.4) K/uL [place] # (Auto) 0.69 H (0.11-0.59) K/uL POC pH (7.35-7.45) POC pO2 (80-95) mmHg POC Total CO2 (24-31) mmol/L POC ABG O2 Sat (90-95) % POC Sodium (135-144) mmol/L Sodium (136-145) mmol/L Chloride (98-107) mmol/L Creatinine (0.6-1.2) mg/dl Glucose (70-99(Fasting)) mg/dl POC Glucose 111 H (70-99) mg/dl Osmolality 270 L (280-300) mOsm/kg Calcium (8.5-10.1) mg/dl Troponin I High Sens (0-14) pg/ml Urine Osmolality (500-800) mOsm/kg 08/18/21 08/18/21 08/19/21 Range/Units 21:30 23:40 01:42 RBC (4.2-5.4) M/uL Hgb (12.0-16.0) g/dL POC Hgb (12.0-16.0) g/dl Hct (37-47) % POC Hct (37-47) % Lymph # (Auto) (1.2-3.4) K/uL [place] # (Auto) (0.11-0.59) K/uL POC pH (7.35-7.45) POC pO2 (80-95) mmHg POC Total CO2 (24-31) mmol/L POC ABG O2 Sat (90-95) % POC Sodium (135-144) mmol/L Sodium 128 L 129 L (136-145) mmol/L Chloride 97 L (98-107) mmol/L Creatinine 0.59 L (0.6-1.2) mg/dl Glucose 106 H (70-99(Fasting)) mg/dl POC Glucose (70-99) mg/dl Osmolality (280-300) mOsm/kg Calcium 8.4 L (8.5-10.1) mg/dl Troponin I High Sens 19.0 H 18.5 H (0-14) pg/ml Urine Osmolality 370 L (500-800) mOsm/kg 08/19/21 08/19/21 08/19/21 Range/Units 07:45 07:45 07:49 RBC 3.93 L (4.2-5.4) M/uL Hgb 11.2 L (12.0-16.0) g/dL POC Hgb 11.9 L (12.0-16.0) g/dl Hct 33.0 L (37-47) % POC Hct 35 L (37-47) % Lymph # (Auto) (1.2-3.4) K/uL [place] # (Auto) (0.11-0.59) K/uL POC pH 7.25 L (7.35-7.45) POC pO2 169 H (80-95) mmHg POC Total CO2 20 L (24-31) mmol/L POC ABG O2 Sat 99.0 H (90-95) % POC Sodium 123 L (135-144) mmol/L Sodium 130 L (136-145) mmol/L Chloride (98-107) mmol/L Creatinine 0.59 L (0.6-1.2) mg/dl Glucose 101 H (70-99(Fasting)) mg/dl POC Glucose (70-99) mg/dl Osmolality (280-300) mOsm/kg Calcium 8.4 L (8.5-10.1) mg/dl Troponin I High Sens (0-14) pg/ml Urine Osmolality (500-800) mOsm/kg Diagnostic Findings MRI brain-. No acute intracranial findings. Postcontrast images moderately compromised by motion artifact but no intracranial mass or pathologic enhancement identified. CT head-No acute intracranial findings. . No acute calvarial fracture.
[2021-08-20] MEDS: MELOXICAM 7.5 MG TAB PO SCH (08:26)
[2021-08-20] MEDS: CEROVITE ADV FORMULA TAB PO SCH (08:26)
[2021-08-20] MEDS: SIMVASTATIN 20 MG TAB PO SCH (08:26)
[2021-08-20] MEDS: PANTOprazole 40 MG TAB PO SCH (08:26)
[2021-08-20] MEDS: PARoxetine HCL 20 MG TAB PO SCH (08:26)
[2021-08-20] MEDS: METOPROLOL SUCC 25MG EXT REL TAB PO SCH (08:27)
[2021-08-20 09:46] LABS: Hematocrit (blood only) 37.3 % (37-47); Hemoglobin 12.4 g/dL (12.0-16.0); Mean Corpuscular Hemoglobin 28.4 pg (25-34); Mean Corpuscular Hgb Conc 33.2 g/dL (32-36); Mean Corpuscular Volume 85.4 fL (80-100); Mean Platelet Volume 8.6 fL (7.4-10.4); Platelet Count 239 K/uL (130-400); RDW Coefficient of Variation 13.6 % (11.5-14.5); RDW Standard Deviation 42.4 fL (36.4-46.3); Red Blood Count 4.37 M/uL (4.2-5.4); White Blood Count 4.15 K/uL (4.8-10.8)
--- NOTE | 2021-08-20 09:46 | Hospitalist Progress Note ---
Date of Service August 20, 2021 Assessment & Plan (1) Seizure: Plan: Concern for Breakthrough seizures on admission Unclear precipitant Rule out brain tumor MRI brain obtained - IMPRESSION: 1. No acute intracranial findings. 2. Postcontrast images moderately compromised by motion artifact but no intracranial mass or pathologic enhancement identified. OBS Medical telemetry Continue home carbamazepine Seizure precautions, Ativan as needed Neurology consult Re: Breakthrough seizures Defer decision regarding addition of Keppra to patient's regimen to specialist. Per neurology, patient has history of nonepileptic episodes, staring spells. Not likely a breakthrough seizure. Recommend to continue Tegretol. Will order ambulatory EEG as outpatient. Patient is to follow-up with neuropsych evaluation September 04. hypertension, slightly elevated on admission, Facilitate home BP meds Troponin minimally elevated, secondary to above follow up troponin essentially unchanged, no chest pain, cont. to monitor on tele chronic hyponatremia mood disorder past tobacco abuse. DVT prophylaxis. SCDs Re: Head trauma Full code Mr. Celestine Doshi (), contact #[phone] Ms. Joan Lux (niece), contact #[phone] Admission and Anticipated Discharge Date Admission Date: August 19, 2021 Subjective Patient seen in follow-up of possible breakthrough seizure Patient was evaluated by neurology, pt is well-known to their service Patient has history of nonepileptic episodes, staring spells. Currently patient is lying in bed, in no acute distress, reports feeling well Denies fevers, chills, chest pain, shortness of breath, abdominal pain, nausea vomiting Patient cannot recollect the episode, discussed with patient's family Neurology recommended PT OT evaluation prior to discharge, they plan to obtain ambulatory EEG to further evaluate as outpatient PT eval pending Review of Systems Review of Systems: All systems reviewed & are unremarkable except as noted in Subjective Physical Exam Physical Exam: GENERAL: Elderly female, laying in bed, in no acute distress HEENT: NC/AT. EOMI. PERRL. NECK : Supple, no tenderness CHEST : CTA, no tenderness HEART : RRR, no obvious murmurs ABDOMEN: soft, + bowel sounds, some distention, nontender EXTREMITIES : LE swelling, moves extremities SKIN: Normal color, warm NEUROLOGIC : Awake and alert, able to answer some simple questions appropriately, no facial asymmetry, moves extremities Results & Data Results & Data ([facility]) Vital Signs (Past 12 Hours) Vital Signs Temp Pulse Pulse Resp BP BP Pulse Ox 08/20/21 07:49 36.6 C 57 L 18 115/58 L 97 08/20/21 06:09 63 08/20/21 04:33 36.6 C 60 18 137/68 96 08/20/21 00:00 36.9 C 60 18 116/64 99
[2021-08-20 10:11] LABS: BUN Creatinine Ratio 10.6 (10-20); Calcium 8.6 mg/dl (8.5-10.1); Creatinine Clr Calc Pharmacy 73.4 ml/min; Est GFR (African American) 103.7 ml/min; Est GFR (Non-African American) 89.5 ml/min; Potassium 4.7 mmol/L (3.5-5.1)
[2021-08-21] MEDS: PARoxetine HCL 20 MG TAB PO SCH (08:10)
[2021-08-21] MEDS: METOPROLOL SUCC 25MG EXT REL TAB PO SCH (08:10)
[2021-08-21] MEDS: MELOXICAM 7.5 MG TAB PO SCH (08:10)
[2021-08-21] MEDS: SIMVASTATIN 20 MG TAB PO SCH (08:11)
[2021-08-21] MEDS: CEROVITE ADV FORMULA TAB PO SCH (08:11)
[2021-08-21] MEDS: PANTOprazole 40 MG TAB PO SCH (08:11)
--- NOTE | 2021-08-21 10:02 | Hospitalist Progress Note ---
Date of Service August 21, 2021 Assessment & Plan (1) Seizure: Plan: Concern for Breakthrough seizures on admission Unclear precipitant Rule out brain tumor MRI brain obtained - IMPRESSION: 1. No acute intracranial findings. 2. Postcontrast images moderately compromised by motion artifact but no intracranial mass or pathologic enhancement identified. OBS Medical telemetry Continue home carbamazepine Seizure precautions, Ativan as needed Neurology consult Re: Breakthrough seizures Defer decision regarding addition of Keppra to patient's regimen to specialist. Per neurology, patient has history of nonepileptic episodes, staring spells. Not likely a breakthrough seizure. Recommend to continue Tegretol. Will order ambulatory EEG as outpatient. Patient is to follow-up with neuropsych evaluation September 04. Recommend to obtain PT OT evaluation prior to discharge. PT recommends to return home hypertension, slightly elevated on admission, Facilitate home BP meds Troponin minimally elevated, secondary to above follow up troponin essentially unchanged, no chest pain, cont. to monitor on tele chronic hyponatremia mood disorder past tobacco abuse. DVT prophylaxis. SCDs Re: Head trauma Full code Mr. Celestine Doshi (), contact #[phone] Ms. Joan Lux (niece), contact #[phone] Admission and Anticipated Discharge Date Admission Date: August 19, 2021 Subjective Patient seen in follow-up of possible breakthrough seizure Patient was evaluated by neurology, pt is well-known to their service Patient has history of nonepileptic episodes, staring spells. Currently patient is lying in bed, in no acute distress, reports feeling well Denies fevers, chills, chest pain, shortness of breath, abdominal pain, nausea vomiting Patient cannot recollect the episode, discussed with patient's family Neurology recommended PT OT evaluation prior to discharge, they plan to obtain ambulatory EEG to further evaluate as outpatient PT recommends return home Review of Systems Review of Systems: All systems reviewed & are unremarkable except as noted in Subjective Physical Exam Physical Exam: GENERAL: Elderly female, laying in bed, in no acute distress HEENT: NC/AT. EOMI. PERRL. NECK : Supple, no tenderness CHEST : CTA, no tenderness HEART : RRR, no obvious murmurs ABDOMEN: soft, + bowel sounds, some distention, nontender EXTREMITIES : LE swelling, moves extremities SKIN: Normal color, warm NEUROLOGIC : Awake and alert, able to answer some simple questions appropriately, no facial asymmetry, moves extremities Results & Data Results & Data ([facility]) Vital Signs (Past 12 Hours) Vital Signs Temp Pulse Pulse Resp BP Pulse Ox 08/21/21 06:22 36.7 C 56 L 18 127/63 97 08/21/21 06:13 53 L 08/21/21 02:45 36.7 C 60 18 136/73 96 08/20/21 22:54 36.6 C 65 18 120/65 98 08/20/21 22:17 62 Laboratory Results 08/20/21 08/19/21 Range/Units 09:30 07:45 Sodium 132 L (136-145) mmol/L Potassium 4.7 D (3.5-5.1) mmol/L Chloride 100 (98-107) mmol/L Carbon Dioxide 29 (21-32) mmol/L Anion Gap 3 (3-11) BUN 7 (6-23) mg/dl Creatinine 0.66 (0.6-1.2) mg/dl Est Cr Clr Drug Dosing 73.4 ml/min Est GFR ( Amer) 103.7 ml/min Est GFR (Non-Af Amer) 89.5 ml/min BUN/Creatinine Ratio 10.6 (10-20) Glucose 98 (70-99(Fasting)) mg/dl Calcium 8.6 (8.5-10.1) mg/dl Phosphorus 4.0 (2.5-4.9) mg/dl Magnesium 2.0 (1.7-2.4) mg/dl Hepatitis C Ab (EIA) NON-REACTIVE (NON-REACTIVE) Hep C Ab Signal/Cutoff 0.01 (<1.00) Medications Administered Current Inpatient Medications Acetaminophen (Acetaminophen 325 Mg Tab) 650 mg PO Q4H PRN PRN Reason: Pain or Fever Stop: 09/18/21 04:37 Last Admin: 08/20/21 16:37 Dose: 650 mg Documented by: Acetaminophen/Codeine Phosphate (Acetaminophen W/Codeine #3 1 Tab) 1 tab PO QID PRN PRN Reason: pain not relieved by tylenol Stop: 09/18/21 05:34 Carbamazepine (Carbamazepine 200 Mg Tabcr) 400 mg PO BID MICHAEL Stop: 09/18/21 08:59 Last Admin: 08/21/21 08:10 Dose: 400 mg Documented by: Lorazepam 1 mg/ Syringe 1 mls @ 2 mls/min IV Q10M PRN PRN Reason: active seizures Stop: 09/18/21 04:37 Promethazine HCl 12.5 mg/ (Sodium Chloride) 50.5 mls @ 202 mls/hr IV Q6H PRN PRN Reason: Nausea And Vomiting Stop: 09/18/21 04:37 Last Infusion: 08/19/21 06:30 Dose: Infused Documented by: Meloxicam (Meloxicam 7.5 Mg Tab) 7.5 mg PO DAILY [facility] Stop: 09/18/21 05:34 Last Admin: 08/21/21 08:10 Dose: 7.5 mg Documented by: Metoprolol Succinate (Metoprolol Succ 25mg Ext Rel Tab) 25 mg PO DAILY [facility] Stop: 09/18/21 05:44 Last Admin: 08/21/21 08:10 Dose: 25 mg Documented by: Multivitamins/Minerals (Cerovite Adv Formula Tab) 1 tab PO QAM [facility] Stop: 09/18/21 08:59 Last Admin: 08/21/21 08:11 Dose: 1 tab Documented by: Pantoprazole Sodium (Pantoprazole 40 Mg Tab) 40 mg PO DAILY MICHAEL Stop: 09/18/21 08:59 Last Admin: 08/21/21 08:11 Dose: 40 mg Documented by: Paroxetine HCl (Paroxetine Hcl 20 Mg Tab) 60 mg PO DAILY MICHAEL Stop: 09/18/21 08:59 Last Admin: 08/21/21 08:10 Dose: 60 mg Documented by: Simvastatin (Simvastatin 20 Mg Tab) 20 mg PO DAILY [facility] Stop: 09/18/21 08:59 Last Admin: 08/21/21 08:11 Dose: 20 mg Documented by:
--- NOTE | 2021-08-21 10:38 | Discharge Summary ---
Date of Service August 21, 2021 Admission HPI Per Admitting Provider History obtained from patient and records. History from patient secondary to mild confusion. Medical history significant for hypertension, seizure disorder, chronic hyponatremia, RLS, mood disorder, GERD status post surgery, past tobacco abuse. Patient reported to have 2 seizures at home, more frequent than usual attack as per family as per EMS. Possible fall leading to head trauma after seizure attack as per report. Patient noted to be combative upon EMS arrival. Versed administered. Patient compliant with home medications. Unable to answer questions regarding nature of breakthrough seizure, last seizure episode prior to last night. Patient complaining of achy headache symptoms. IV Keppra administered at the ER. Medical History as above Surgical History : Spine surgery, D&C, pyeloplasty/vagotomy, diagnostic laparoscopy/adnexal procedure, cholecystectomy, tonsillectomy/adenoidectomy, tendon release surgery Family History : Heart disease, DM Personal/Social history : Past tobacco abuse, no EtOH intake, retired [employer] Admission Exam Per Admitting Provider GENERAL: uncomfortable, no respiratory distress SKIN: Normal color, warm HEENT: [place] palpebral conjunctivae, no ptosis, dry buccal mucosa NECK : Supple, no tenderness CHEST : CTA, no tenderness HEART : RRR, no obvious murmurs ABDOMEN: Some distention, nontender EXTREMITIES : LE swelling, no LE tenderness, no other conspicuous deformities noted NEUROLOGIC : Oriented to month and year,, no facial asymmetry, no other gross focality Principal Diagnosis Nonepileptic episode, staring spell, concern for seizure Discharge Exam GENERAL: Elderly female, laying in bed, in no acute distress HEENT: NC/AT. EOMI. PERRL. NECK : Supple, no tenderness CHEST : CTA, no tenderness HEART : RRR, no obvious murmurs ABDOMEN: soft, + bowel sounds, some distention, nontender EXTREMITIES : LE swelling, moves extremities SKIN: Normal color, warm NEUROLOGIC : Awake and alert, able to answer some simple questions appropriately, no facial asymmetry, moves extremities Discharge Data Allergies Allergy/AdvReac Type Severity Reaction Status Date / Time No Known Allergies Allergy Verified 08/18/21 21:32 Consultations 08/19/21 01:03 ED Decision to Admit Stat 08/19/21 04:38 Consult Neurology Routine Ordered Studies 08/18/21 20:58 CT cervical spine wo con Urgent IMPRESSION: No acute cervical spine fracture or subluxation. CT head/brain wo con Urgent IMPRESSION: 1. No acute intracranial findings. 2. No acute calvarial fracture. 08/19/21 01:42 MR brain seizure wo/w con Stat IMPRESSION: 1. No acute intracranial findings. 2. Postcontrast images moderately compromised by motion artifact but no intracranial mass or pathologic enhancement identified. Hospital Course (1) Seizure: Concern for Breakthrough seizures on admission Unclear precipitant Rule out brain tumor MRI brain obtained - IMPRESSION: 1. No acute intracranial findings. 2. Postcontrast images moderately compromised by motion artifact but no intracranial mass or pathologic enhancement identified. Continue home carbamazepine Seizure precautions, Ativan as needed Neurology consult Re: Breakthrough seizures Defer decision regarding addition of Keppra to patient's regimen to specialist. Per neurology, patient has history of nonepileptic episodes, staring spells. Not likely a breakthrough seizure. Recommend to continue Tegretol. Will order ambulatory EEG as outpatient. Patient is to follow-up with neuropsych evaluation September 04. Recommend to obtain PT OT evaluation prior to discharge. PT recommends to return home hypertension, slightly elevated on admission, Facilitate home BP meds Troponin minimally elevated, secondary to above follow up troponin essentially unchanged, no chest pain, cont. to monitor on tele chronic hyponatremia mood disorder past tobacco abuse. Total Time Total Time Spent Total Time Spent (In Minutes): 40 Discharge Plan Discharge Items Patient Disposition: Home - Self-Care Reason For Visit: SEIZURE, TROP ELEV Discharge Diagnosis: Nonepileptic episode, staring spell, concern for seizure Activity: Per Instructions section Non-emergency contact: Primary Care Provider and Neurologist Call non-emergency contact if: you have any medication questions and your symptoms worsen Follow-up/Referrals: Celestine Chen PA-C [Primary Care Provider] - 08/27/21 4:20 pm Diet: Regular Addtl Attending Provider Instructions: Follow-up with your primary care doctor, and neurology. Follow-up with your primary care doctor was scheduled for you for August 27. Your medications have not been changed. Continue taking Tegretol as prescribed. Ambulatory EEG will be ordered for you by neurology. You will be contacted about this test. Please, make sure to follow-up with neuropsychiatry evaluation in August. Pending Studies at Discharge: No Stand-Alone Forms: My [employer], Smoking Cessation Medications and DC Order Prescriptions: Continued multivitamin Tablet 1 tab PO DAILY RF: 0 carbamazepine [Tegretol XR] 400 mg tablet extended release 12 hr 400 mg PO BID RF: 0 meloxicam 7.5 mg tablet 7.5 mg PO DAILY RF: 0 paroxetine HCl 20 mg tablet 20 mg PO DAILY RF: 0 simvastatin 20 mg tablet 20 mg PO DAILY RF: 0 omeprazole 20 mg capsule,delayed release(DR/EC) 20 mg PO DAILY RF: 0 furosemide 20 mg tablet 20 mg PO DAILY RF: 0 metoprolol succinate 25 mg tablet extended release 24 hr 25 mg PO DAILY RF: 0 paroxetine HCl 40 mg tablet 40 mg PO DAILY RF: 0 PreserVision AREDS-2 250-90-40-1 mg Capsule 1 tab PO BID RF: 0 Discharge Orders: Discharge Order (Routine); Ordered 08/21/21 Ordered By: Toni Stewart Admission Data Admit Date/Time: 08/19/21 01:39 Attending Provider: Caesar Jauregui Admit Provider: Tuan Henderson Primary Care Provider: Celestine Chen Other Providers: Tuan Henderson ; Pia Cartwright ; Celestine Mcbride Kathleen ; Lamont Mitchell ; Juana White
== END 2021-08-21 13:15 | disposition home or self-care (01) ==
LOC: ED 20:54 → 2W 20:54 → SUATTDRO 08-19 01:39 → 2W 08-19 04:01